=== PATIENT | male | born 1960 | race Caucasian/White ===

== ENCOUNTER 2017-02-22 11:07 | Emergency (ER) | payer OTHER ==
[2017-02-22 11:30] VITALS: BP 125/82
--- NOTE | 2017-02-22 11:59 | ED Physician Documentation ---
Sore Throat/Dental Pain - HISTORIAN Historian: patient, spouse - HPI Stated Complaint: sore throat Chief Complaint: Sore Throat Additional Information: hurts only to swallow solids-not fluids and ONLY during solid swallowing. throat does not hurt otherwise Onset: days ago (1) Context: denies: Foreign Body, Fractured Tooth Associated Symptoms: denies: fever, chills, unable to swallow, runny nose, congestion - ROS CONST: no problems CVS/RESP: none MS/SKIN/LYMPH: denies: muscle aches, rash NEURO/PSYCH: none - PAST HX Past History: other (copd) Allergies/Adverse Reactions: Allergies Allergy/AdvReac Type Severity Reaction Status Date / Time Penicillins Allergy Rash Verified 02/22/17 11:30 IVP dye AdvReac Itchy Skin Uncoded 01/09/16 08:53 Home Medications: Ambulatory Orders Medication Instructions Recorded Budesonide/Formoterol Fumarate 1 puff INH PRN PRN 01/09/16 [Symbicort 160-4.5 Mcg Inhaler] Tiotropium [place] [Spiriva] 1 puff INH D 01/09/16 - SOCIAL HX Smoking History: greater than 1 pack/day Alcohol Use: other (gin every other day) Drug Use: none - FAMILY HX Family History: No - VITAL SIGNS Vital Signs: Vital Signs Temp Pulse Resp BP Pulse Ox 98.9 F 76 16 125/82 94 02/22/17 11:24 02/22/17 11:24 02/22/17 11:24 02/22/17 11:24 02/22/17 11:24 - REVIEWED ASSESSMENTS Nursing Assessment Reviewed: Yes Vitals Reviewed: Yes ED Results Lab/Radiology - Lab Results Lab Results: Lab Results 02/22/17 11:30 Group A Strep Screen Negative (NEGATIVE) - Orders Orders: ED Orders Category Date Time Status Rapid Strep [GRP A STREP SCREEN] Stat Lab 02/22/17 11:30 Completed THROAT CULTURE Stat Lab 02/22/17 11:30 Received Sore throat Physical Exam - EXAM General Appearance: mild distress Head/Neck: head nml inspection. No: mandibular swelling (R), mandibular swelling (L), maxillary swelling (R), maxillary swelling (L), cervical lymphadenopathy, neck mass/swelling, stiff neck Eyes: eyes nml inspection Mouth/Throat: lips nml, gums nml, pharyngeal erythema. No: pharynx nml Ear/Nose: nml inspection Respiratory: no resp. distress, breath sounds nml CVS: reg. rate & rhythm, heart sounds nml Abdomen: soft, non-tender Extremities: non-tender, nml ROM Skin: warm/dry, normal color. No: cyanosis, diaphoresis, jaundice Neuro/Psych: oriented x3, mood/affect nml Discharge Clincal Impression: sore throat udo-await c & s, nicotine and etoh abuse Referrals: Cruzito Kramer MD [Primary Care Provider] - 2 Days Home Medications: Ambulatory Orders Budesonide/Formoterol Fumarate [Symbicort 160-4.5 Mcg Inhaler] 1 puff INH PRN PRN 01/09/16 Tiotropium [place] [Spiriva] 1 puff INH D 01/09/16 Comments: rec hold cigs and etoh soft liquid foods cold cornelio see pcp or ENT Condition: Fair Disposition: 01 HOME, SELF-CARE Decision to Admit: NO Decision Time: 12:06
== END 2017-02-22 12:12 | disposition home or self-care (01) ==
LOC: ED 11:07
DX: J02.9 Acute pharyngitis, unspecified (principal); F10.10 Alcohol abuse, uncomplicated; Z72.0 Tobacco use
CPT/HCPCS: 87070; 87880; 99283

== ENCOUNTER 2017-03-28 16:21 | Emergency (ER) | payer OTHER ==
[2017-03-28 16:31] VITALS: BP 135/96
--- NOTE | 2017-03-28 17:00 | ED Physician Documentation ---
Low Back Pain - HISTORIAN Historian: patient - HPI Stated Complaint: Back Pain Chief Complaint: Low Back Pain/ Injury Additional Information: slipped in shower 2 days ago lt lumbaR PAIN. no radiation History: back pain. denies: history of chronic pain: Duration: continues in ED Recent Injury: Yes Context: near-fall Where: home Other Injuries: back Severity: mild, moderate Quality: burning, sharp Associated Symptoms: denies: fever, chills, sweating Worsened By:: movement to RT flexion, movement to LT flexion Relieved By: remaining still Further Comments: yes (does not have chronic back pain) - ROS CONST: no problems CVS/RESP: none MS/SKIN/LYMPH: none, back pain Neuro/Psych: none - PAST HX Past History: other (copd) Surgeries/Procedures: none Allergies/Adverse Reactions: Allergies Allergy/AdvReac Type Severity Reaction Status Date / Time Penicillins Allergy Rash Verified 02/22/17 11:30 IVP dye AdvReac Itchy Skin Uncoded 01/09/16 08:53 Home Medications: Ambulatory Orders Medication Instructions Recorded Budesonide/Formoterol Fumarate 1 puff INH PRN PRN 01/09/16 [Symbicort 160-4.5 Mcg Inhaler] Tiotropium [place] [Spiriva] 1 puff INH D 01/09/16 Orphenadrine Citrate [Norflex] 100 mg PO BID #20 tab 03/28/17 - SOCIAL HX Smoking History: greater than 1 pack/day Alcohol Use: occasionally Drug Use: none - FAMILY HX Family History: no significant history - VITAL SIGNS Vital Signs: Vital Signs Temp Pulse Resp BP Pulse Ox 98 F 84 18 135/96 97 03/28/17 16:58 03/28/17 16:58 03/28/17 16:58 03/28/17 16:58 03/28/17 16:58 - REVIEWED ASSESSMENTS Nursing Assessment Reviewed: Yes Vitals Reviewed: Yes Low Back Pain/Injury - Physical Exam General Appearance: mild distress, moderate distress Neck: non-tender Resp/CVS: chest non-tender, breath sounds nml, heart sounds nml Abdomen: non-tender, no organomegaly Back: CVA tenderness, muscle spasm (rt lumbar). No: vertebral point-tendernes Neuro/Psych: oriented x3, motor nml, sensation nml Skin: warm/dry, normal color. No: cyanosis, diaphoresis, jaundice Extremities: non-tender, normal range of motion, no evidence of injury, no edema Discharge Clincal Impression: rt lumbar back pain Prescriptions: Orphenadrine Citrate [Norflex] 100 mg PO BID #20 tab Referrals: Primary Doctor,No [Primary Care Provider] - 2 Days Comments: home meds avoid lifting kamilla flexing Condition: Good Disposition: 01 HOME, SELF-CARE Decision to Admit: NO Decision Time: 17:04
== END 2017-03-28 16:58 | disposition home or self-care (01) ==
LOC: ED 16:21
DX: M54.5 Low back pain (principal)
CPT/HCPCS: 99283

== ENCOUNTER 2017-05-13 08:03 | Emergency (ER) | payer OTHER ==
--- NOTE | 2017-05-13 08:09 | ED Physician Documentation ---
General Adult - HISTORIAN Historian: patient, spouse - HPI Stated Complaint: bitten by neighbors dogs - UTD on immunizations Chief Complaint: Hand Injury Onset: hours (5) Timing: worse (joint pain on right hand ring finger ) Severity: mild Modifying Factors: worse with movement of finger Quality: dull Location: right hand Further Comments: no Last known Well Date: 05/12/17 Last Known Well Time: 09:00 Last known Well Code/Unknown Code: Unknown - ROS CONST: denies: fever, sweating EYES/ENT: none CVS/RESP: denies: shortness of breath, cough GI/: none MS/SKIN/LYMPH: other (dog bite area on right hand ) NEURO/PSYCH: denies: headache, dizziness - PAST HX Past History: COPD Other History: none Surgeries/Procedures: other ("nothing that pertains to this" ) Immunizations: UTD Allergies/Adverse Reactions: Allergies Allergy/AdvReac Type Severity Reaction Status Date / Time Penicillins Allergy Rash Verified 05/13/17 08:24 IVP dye AdvReac Itchy Skin Uncoded 01/09/16 08:53 Home Medications: Ambulatory Orders Medication Instructions Recorded Budesonide/Formoterol Fumarate 1 puff INH PRN PRN 01/09/16 [Symbicort 160-4.5 Mcg Inhaler] Tiotropium [place] [Spiriva] 1 puff INH D 01/09/16 Sulfamethoxazole/Trimethoprim 1 each PO BID #20 tablet 05/13/17 [Bactrim Ds] - SOCIAL HX Smoking History: cigarettes Alcohol Use: rarely Drug Use: none - FAMILY HX Family History: No - VITAL SIGNS Vital Signs: Vital Signs Temp Pulse Resp BP Pulse Ox 135/96 03/28/17 16:58 - REVIEWED ASSESSMENTS Nursing Assessment Reviewed: Yes Vitals Reviewed: Yes General Adult Physical Exam - PHYSICAL EXAM GENERAL APPEARANCE: no distress RESPIRATORY: no resp distress, chest non-tender, breath sounds normal CVS: reg rate & rhythm, heart sounds normal, equal pulses, no murmur ABDOMEN: soft, no organomegaly, normal bowel sounds SKIN: other (right hand with 4 punture sites - no drainge, no bleeding right ring finger with mild swelling and redness ) NEURO: oriented X3, CN's nml as tested, motor nml Discharge Clincal Impression: Dog bite Qualifiers: Encounter type: initial encounter Qualified Code(s): W54.0XXA - Bitten by dog, initial encounter Prescriptions: Sulfamethoxazole/Trimethoprim [Bactrim Ds] 1 each PO BID #20 tablet Referrals: Primary Doctor,No [Primary Care Provider] - 2 Days Condition: Stable Disposition: 01 HOME, SELF-CARE Decision to Admit: NO Date of Decison to Admit: 05/13/17 Decision Time: 08:39
[2017-05-13 08:47] VITALS: BP 128/87
== END 2017-05-13 08:46 | disposition home or self-care (01) ==
LOC: ED 08:03
DX: W54.0XXA Bitten by dog, initial encounter (principal); Y93.9 Activity, unspecified; Y99.9 Unspecified external cause status
CPT/HCPCS: 99283

== ENCOUNTER 2017-06-16 15:01 | Outpatient (CLI) | payer OTHER ==
--- NOTE | 2017-06-17 11:03 | OP Clinic Progress Note ---
REASON FOR VISIT: This 57-year-old man is seen accompanied by his sister. He has had a lesion in his right cheek that has progressively grown over the last almost year. He is a pack-a-day smoker. It has not been painful. It has not drained. There has been no trauma. There is an ovoid mass that may be 1.5 cm in the cheek, more adjacent to the premolars of the mandible on the right side. There is no gross cervical lymphadenopathy. Fiberoptic laryngoscopy shows no gross evident mass or tumor. There is some increased thickening of the secretions. 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 Higher probability would be that it is benign and the possibility of malignancy and additional surgery or treatment might be indicated after excision. I went over risks, problems, complications, and options such as a needle biopsy but the patient simply would like to get it excised. He voluntarily understands that more than likely it is just going to keep getting larger, which it has done and progressively so fairly recently. PLAN: The plan is for a direct laryngoscopy and excision of the mass transoral. Again , the patient understands postoperative care, the need for additional surgery, and possible mild neurologic deficits in motor or sensory. Surgery will more than likely be done within the next several weeks to a month here at [facility]. cc: Dr. Cruzito CRAMER
== END 2017-06-16 15:10 ==
LOC: ENT 15:01
PROVIDERS: ATTEND Otolaryngology
DX: K13.79 Other lesions of oral mucosa (principal); Z72.0 Tobacco use
CPT/HCPCS: 31575; G0463

== ENCOUNTER 2017-06-21 07:23 | Outpatient (CLI) | payer OTHER ==
[2017-06-21 08:38] LABS: eGFR (African) > 60; eGFR (Non-African) > 60
== END 2017-06-21 07:24 ==
LOC: RT 07:23
PROVIDERS: ATTEND Otolaryngology
DX: K13.70 Unspecified lesions of oral mucosa (principal)
CPT/HCPCS: 36415; 80053

== ENCOUNTER 2017-07-07 14:27 | Outpatient (CLI) | payer OTHER ==
--- NOTE | 2017-07-12 10:13 | OP Clinic Progress Note ---
REASON FOR VISIT: This male last week had an excision of a mass that was on the buccal surface on the right side in the premolar area at the mandible level. This patient was anxious and it was done under combined local and general anesthetic. In the interval, he had a little more discomfort than I would have thought one would have noted. Nevertheless, the incision site is well healed. There is no gaping. This actually appears to be significantly well healed on direct examination. The patient is able to retract his lip absolutely 100% symmetrically. When drinking coffee, he still prefers to drink out of the left side. There may be a small amount of very mild hypesthesia that has not resolved yet and sometimes a small amount of that hypesthesia remains. There is no evidence of infection. PLAN: Through mutual consent and decision making, I offered to see the patient back in several weeks but we both acknowledged that he seems to be doing well. There is no evident problem or complication. The patient is comfortable in not having a specific follow up appointment and that he is doing well enough, but he is more than welcome to return at any time if he has any questions or issues. cc: Dr. Cruzito CRAMER
== END 2017-07-07 14:30 ==
LOC: ENT 14:27
PROVIDERS: ATTEND Otolaryngology
DX: K11.6 Mucocele of salivary gland (principal)
CPT/HCPCS: G0463

== ENCOUNTER 2017-08-29 18:29 | Emergency (ER) | payer OTHER ==
--- NOTE | 2017-08-29 19:00 | ED Physician Documentation ---
Upper Respiratory Symptoms - HISTORIAN Historian: patient, spouse - HPI Stated Complaint: cough x 6 days Chief Complaint: Cough/ Upper Respiratory Additional Information: pt dw adv copd etoh nicotine abuse-exab cough w/ greenish sputum-lo gr fever Onset: days ago (6) Duration: intermittent episodes Context: denies: recent foreign travel, insect bite(s) Severity: moderate Associated Symptoms: fever, chills, productive cough, shortness of breath Worsened by Deep Breath: Yes Further Comments: yes (drinks and smokes more than admits) - ROS CONST/EYES: weakness CVS/RESP: shortness of breath NEURO/PSYCH: depression - PAST HX Lung Disease: COPD Allergies/Adverse Reactions: Allergies Allergy/AdvReac Type Severity Reaction Status Date / Time Penicillins Allergy Rash Verified 08/29/17 18:43 IVP dye AdvReac Itchy Skin Uncoded 01/09/16 08:53 Home Medications: Ambulatory Orders Medication Instructions Recorded Doxycycline Hyclate 100 mg PO BID #20 tablet 08/29/17 - SOCIAL HX Smoking History: greater than 1 pack/day Alcohol Use: heavy - FAMILY HX Family History: no significant history - VITAL SIGNS Vital Signs: Vital Signs Temp Pulse Resp BP Pulse Ox 128/87 05/13/17 08:04 - REVIEWED ASSESSMENTS Nursing Assessment Reviewed: Yes Vitals Reviewed: Yes ED Results Lab/Radiology - Orders Orders: ED Orders Category Date Time Status methylPREDNISolone ACETATE [Depo-Medrol] Med 08/29/17 18:52 Ordered 80 mg IM NOW PRN Upper Respiratory Symptoms - EXAM General Appearance: moderate distress EENT: eyes nml inspection Neck: normal inspection Respiratory: speaks full sentences, prolonged expirations, wheezes, rales Abdomen: non-tender, no distention CVS: reg rate & rhythm, heart sounds normal Skin: color nml, no rash, warm,dry. No: cyanosis, diaphoresis, pallor Extremities: non-tender, normal range of motion Neuro/Psych: oriented x3, depressed mood/affect Discharge Clincal Impression: acute exaberation copd, nicotine and etoh abuse Prescriptions: Doxycycline Hyclate 100 mg PO BID #20 tablet Referrals: Cruzito Kramer MD [Primary Care Provider] - 2 Days Condition: Fair Disposition: 01 HOME, SELF-CARE Decision to Admit: NO Decision Time: 19:07
[2017-08-29 19:01] VITALS: BP 131/78
[2017-08-29] MEDS ORDERED: methylPREDNISolone ACETATE 80 MG/ML VIAL IM ONE (19:03)
[2017-08-29] MEDS: methylPREDNISolone ACETATE 80 MG/ML VIAL IM PRN (19:08)
[2017-08-29] MEDS: DOXYCYCLINE MONOHYDRATE 100 MG CAPSULE PO ONE (19:10)
== END 2017-08-29 19:20 | disposition home or self-care (01) ==
LOC: ED 18:29
DX: J44.1 Chronic obstructive pulmonary disease with (acute) exacerbation (principal); F17.210 Nicotine dependence, cigarettes, uncomplicated; F10.20 Alcohol dependence, uncomplicated
CPT/HCPCS: 96372; 99282; 99283; J1040

== ENCOUNTER 2017-09-07 10:10 | Outpatient (CLI) | payer OTHER ==
[2017-09-07 10:36] LABS: BASOPHILS % 0.3 (0.0-1.5); EOSINOPHILS % 1.6 % (0.0-6.8); MEAN CORPUSCULAR VOLUME 94.2 fl (80.0-100.0); MONOCYTES % 5.1 % (0.0-11.0); NEUTROPHILS # 7.3 # k/uL (1.4-7.7)
--- NOTE | 2017-09-07 11:16 | Diagnostic Imaging Report ---
JANEEN HARRIS [facility] [address] [facility] [address] [address] Report Submission Date: Sep 07, 2017 11:03:24 AM COMPUTER APPLICATION DEVELOPER Patient Study Name: YASMEEN CRAIN Date: Sep 07, 2017 10:46:05 AM COMPUTER APPLICATION DEVELOPER Modality Type: DX Gender: M Description: CHEST : 60 Institution: [facility] Physician: JANEEN HARRIS Examination: PA and lateral chest. History: Evaluate lung welch. PRODUCTIVE COUGH X 1 WEEK (Hx) Findings: PA lateral chest demonstrate a normal cardiac and mediastinal silhouette. Apical emphysematous changes. No focal infiltrate. No blunting of the costophrenic margins. Osseous structures are appropriate for age. Impression: No acute pulmonary process. Electronically signed on Sep 07, 2017 11:03:24 AM COMPUTER APPLICATION DEVELOPER by: John CRAMER
== END 2017-09-07 10:30 ==
LOC: LAB 10:10
PROVIDERS: ATTEND Physician Assistant
DX: R05 Cough (principal)
CPT/HCPCS: 36415; 71046; 85025

== ENCOUNTER 2018-03-30 13:58 | Outpatient (CLI) | payer OTHER ==
--- NOTE | 2018-03-31 14:04 | OP Clinic Progress Note ---
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 He does have some of the mucocele. Overall, the patient has done well. There is no clear objective, recurrence, problems, or complications. Symptomatically, he has some numbness that he acknowledges was told to him at least twice preoperatively and he understood that this was a potentially problem. He is able to move his lips fine. He says he can swallow fine and eat fine. He feels that he has a hard time whistling. He feels that if he rubs or touches his lip, he may have some cold or warm sensations on that right lower lip side. Feeling with a glove and looking intraorally, surprisingly, a tiny amount of scar tissue and it feels well healed. I do not see undue swelling and there is no undue thickening at all in the area. Mostly, it is a symptomatic review with the patient of some type of paresthesias when he touches his lips and it may feel warm or cold as far as sensation. He prefers smoking on the left side of his mouth more than the right. I spent a fairly significant amount of time listening to the patient's discussion. He acknowledged that he has the sensations. I expressed to him that these have a fairly high probability of occurring to a variable degree. Motor murillo, the patient is perfectly symmetrical on the right side and the left side. Patient acknowledged appreciation for the discussion. He stated that he did not have any complaints with the surgery, although he would like some of the unusual paresthesia sensations to resolve. He acknowledged these issues had been discussed with him preoperatively. PLAN: He may return at any time. cc: Dr. Cruzito CRAMER
== END 2018-03-30 14:00 ==
LOC: ENT 13:58
PROVIDERS: ATTEND Otolaryngology
DX: K13.0 Diseases of lips (principal); R20.2 Paresthesia of skin
CPT/HCPCS: G0463

== ENCOUNTER 2018-08-31 19:55 | Emergency (ER) | payer OTHER ==
--- NOTE | 2018-08-31 20:09 | ED Physician Documentation ---
General Adult - HISTORIAN Historian: patient - HPI Stated Complaint: right lateral chest pain after fall at work Chief Complaint: Chest Pain Onset: hours (1) Timing: still present Severity: mild Further Comments: yes (he was working and slipped on ice falling down on his right lateral chest. He has pain on lateral chest with movement deep breath or cough. Denies any other injury . He has not taken anything for pain.) - ROS CONST: no problems EYES/ENT: none CVS/RESP: none GI/: none MS/SKIN/LYMPH: none NEURO/PSYCH: denies: headache, fainting, dizziness - PAST HX Past History: none Other History: none Surgeries/Procedures: none Immunizations: UTD Allergies/Adverse Reactions: Allergies Allergy/AdvReac Type Severity Reaction Status Date / Time Penicillins Allergy Rash Verified 08/31/18 20:14 IVP dye AdvReac Itchy Skin Uncoded 08/31/18 20:14 - SOCIAL HX Smoking History: cigarettes Alcohol Use: none Drug Use: none - FAMILY HX Family History: Yes - VITAL SIGNS Vital Signs: Vital Signs Temp Pulse Resp BP Pulse Ox 131/78 08/29/17 19:25 - REVIEWED ASSESSMENTS Nursing Assessment Reviewed: Yes Vitals Reviewed: Yes ED Results Lab/Radiology - Radiology Radiology Impressions: Right ribs with AP chest HISTORY Rib pain, fall FINDINGS Included chest radiograph demonstrates emphysematous change. There is no rib fracture or abnormal bone destruction. IMPRESSION Normal right ribs. Electronically signed on Aug 31, 2018 8:58:34 PM DIGITAL PRODUCTION ARTIST by: Salvador Hardin General Adult Physical Exam - PHYSICAL EXAM GENERAL APPEARANCE: no distress EENT: eye inspection normal, no signs of dehydration NECK: normal inspection RESPIRATORY: no resp distress, chest non-tender, other (pain with palpation on right upper lateral chest - noted bruise ) CVS: reg rate & rhythm, heart sounds normal ABDOMEN: soft, normal bowel sounds, no distension BACK: normal inspection SKIN: warm/dry EXTREMITIES: non-tender NEURO: oriented X3 Discharge Clincal Impression: Chest wall pain Referrals: Cruzito Kramer MD [Primary Care Provider] - 2 Days Comments: 1. Tylenol or Ibuprofen as directed for pain 2. Deep breaths 3. Follow up with PCP in 2-4 days if needed 4. Return to ER for any concerns Condition: Stable Disposition: 01 HOME, SELF-CARE Decision to Admit: NO Date of Decison to Admit: 08/31/18 Decision Time: 21:04
[2018-08-31] MEDS ORDERED: KETOROLAC TROMETHAMINE 60 MG/2 ML VIAL ONE (21:03)
[2018-08-31] MEDS ORDERED: KETOROLAC TROMETHAMINE 60 MG/2 ML VIAL IM ONE (21:04)
[2018-08-31 21:15] VITALS: BP 122/79
--- NOTE | 2018-09-01 05:29 | Diagnostic Imaging Report ---
DAVID [facility]ILLALTA [id number] [facility] [address] [place], [place]. [address] Report Submission Date: Aug 31, 2018 8:58:34 PM SLITTER AND CUTTER OPERATOR Patient Study Name: YASMEEN CRAIN Date: Aug 31, 2018 8:36:43 PM SLITTER AND CUTTER OPERATOR Modality Type: DX Gender: M Description: RIBS UNILATERAL W/ PA CHEST : 60 Institution: Physician: DAVID VILLALTA Right ribs with AP chest HISTORY Rib pain, fall FINDINGS Included chest radiograph demonstrates emphysematous change. There is no rib fracture or abnormal bone destruction. IMPRESSION Normal right ribs. Electronically signed on Aug 31, 2018 8:58:34 PM SLITTER AND CUTTER OPERATOR by: Salvador CRAMER
== END 2018-08-31 20:12 | disposition home or self-care (01) ==
LOC: ED 19:55
DX: R07.89 Other chest pain (principal); W00.9XXA Unspecified fall due to ice and snow, initial encounter; Y93.89 Activity, other specified; Y92.89 Other specified places as the place of occurrence of the external cause; Y99.0 Civilian activity done for income or pay
CPT/HCPCS: 71101; 96372; 99282; 99283; J1885